=== PATIENT | male | born 1985 | race Caucasian/White ===

== ENCOUNTER 2017-06-07 10:33 | Emergency (ER) | payer BC, OTHER ==
[~2017-06-07] VITALS: Ht 172.7 cm; Wt 74.4 kg
[2017-06-07] MEDS ORDERED: POLY2.5S OD (11:10)
[2017-06-07] MEDS: FLUORESCEIN OPHTH 1 MG STRIP XX ONE (11:45)
[2017-06-07] MEDS: TETRACAINE 0.5% OPHTH SOLN 4ML XX ONE (11:45)
[2017-06-07] MEDS ORDERED: BESI0.6S OP (14:10)
[2017-06-07 14:23] VITALS: BP 130/77
--- NOTE | 2017-06-09 10:13 | ER ---
DATE OF CONSULTATION: 06/09/2017 HISTORY OF PRESENT ILLNESS: Foreign body in the right eye. 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 While working overhead he noted something had fallen into the right eye approximately two to three days ago. At that time, the patient noted increasing tearing and discomfort in the right eye. He describes foreign body sensation, tearing and redness in the right eye with some blurring of the vision. At that time, he went to an urgent care center where they told him he had a metal foreign body in the eye and they attempted to remove it with a cotton tipped applicator at that time and it was felt that the metal piece was removed entirely and the patient was started on Polytrim drops four times a day to the right eye. The patient presented to the emergency department two days later with no resolution of his symptoms. Emergency room ophthalmology consultation was placed. The patient was seen and examined at the bedside with his in the examination room. PAST MEDICAL HISTORY: Denies. ALLERGIES: No known drug allergies. PAST OCULAR HISTORY: Denies. Only uses occasional protective eyewear during work. SOCIAL HISTORY: Noncontributory. PHYSICAL EXAMINATION: Visual acuity in the right eye is approximately 20/40, in the left eye is 20/25. Extraocular muscles are full and intact. Confrontation of visual escoto is full in both eyes. The pupils are equal, round and reactive to light without APD. Lid, lashes, and adnexa are within normal limits of both eyes. In the right eye there is a 1.5 mm metallic foreign body in the right paracentral cornea with a rust ring surrounding it. A mild epithelial defect. Anterior chambers deep and quiet both eyes. Conjunctiva and sclera reveals a 2+ injection of the right eye with no discharge. The fornices were swept and did not reveal any other additional metallic foreign bodies and the tarsus was evaluated and there were also no metallic foreign bodies found at that time. Dilated fundus examination by Diopter lens was deferred at this time due to the patient discomfort. ASSESSMENT AND PLAN: 1. Metallic foreign body of the right eye with rust ring. 2. Epithelial defect. PLAN: A 30 g was used to remove the residual metallic foreign body and the rust ring was left behind as there was no available algier or cristiano brush available in the emergency department. The patient was recommended to continue Polytrim drops, one drop four times a day in the right eye and he also was recommended to start Besivance one drop three times a day to the right eye. The patient was told to followup in the office with me in approximately one week or in the emergency department sooner if symptoms returned or worsened. THANIA
== END 2017-06-07 14:24 | disposition home or self-care (01) ==
LOC: M ED 10:33
DX: T15.01XA Foreign body in cornea, right eye, initial encounter (principal); W29.4XXA Contact with nail gun, initial encounter; Y92.9 Unspecified place or not applicable; Y93.89 Activity, other specified; Y99.9 Unspecified external cause status